=== PATIENT | female | born 1990 | race Two or more races ===

== ENCOUNTER 2025-03-02 21:02 | Emergency (ER) | payer MEDICAID, SELFPAY ==
[2025-03-02 21:03] VITALS: BMI 24.1
--- NOTE | 2025-03-02 21:09 | EDNOTE_ITS ---
ED Wound/Laceration-RME/HPI General Chief Complaint: Wound/Laceration Stated Complaint: HEAD INJURY, LAC TO HEAD Time Seen by Provider: 03/02/25 21:32 Arrival date/time: 03/02/25 21:02 RME / HPI RME / HPI narrative: This section includes all my notes and documentations, including HPI, PE, and ED course. Anastacio Pillai MD HPI: 34yo female with no significant past medical history presents to the ED for a chief complaint of a head injury just prior to arrival. Patient states she was working out at a local gym at 1930 and was bending over,. Then hit in the back of her head, a metal piece of equipment fell on her head. Denies any loss of consciousness. Patient states since then, she's developed a headache, dizziness, and nausea, so she came in for evaluation. Patient denies any other injuries. No other complaints reported. ROS: All negative except as documented in HPI. Physical Exam: General:? Alert and oriented.? No acute distress.?? Eyes:? Conjunctivae and lids clear.? EOMI.? PERRL. ENT:? No nasal congestion.? Pharynx normal.? Tympanic membrane normal bilaterally.??? Neck:? Supple.? No tenderness. Heart:? RRR.? Lungs:? No respiratory distress.? Good air movement.? No rhonchi, wheezing, rales.?? Chest:? No tenderness. Abdomen:? Soft and nontender.? Back:? No tenderness.?? Skin:? Warm and dry.??In the left parietal scalp, there is a 2.25 cm full-scalp thickness laceration gaping with active bleeding. Neuro:? Alert and oriented X 3.? Cranial Nerves II-XII grossly intact.? No peripheral motor deficits. Musculoskeletal:? All major joints and bones are not tender with no limited ROM.? I reviewed all diagnostic test results. My review of the CT head report is unremarkable. At this point, diagnoses include scalp laceration and head injury. See procedure note. Treatment here included wound care, Tylenol, Bacitracin, tDap, Ibuprofen, and Zofran. Provided wound care instructions. Based on my best medical judgment, made decision no further evaluation or treatment indicated at this time. Patient understands and agrees to the discharge instructions customized and printed, see below. Discharge Instructions from Dr. Pillai printed for you: -- Fortunately, there is no brain injury. -- Your scalp laceration was repaired with 6 lauren. -- Keep the current dressing intact for 24 hours. -- After 24 hours, change the dressing once daily. -- First remove the dressing gently. If it does not come off easily, run water through it until it comes off easily. -- Then gently wash with soap and water. -- After completely drying, apply antibiotic ointment and new dressing. -- See your doctor or return here in 10 days to remove your 7 lauren. -- Seek immediate medical care with fever, spreading redness from the wound, or with any concerns. Anastacio Pillai MD Related Data Allergies Allergy/AdvReac Type Severity Reaction Status Date / Time No Known Allergies Allergy Verified 03/02/25 21:06 Review of Systems Review of Systems Systems Reviewed: All systems reviewed, normal except as documented Past Medical History Past Medical History NEUROLOGIC: Negative Neurological Disorders CARDIAC: Negative Cardiac Disorders or Congestive Heart Failure RESPIRATORY: Negative Chronic Obstructive Pulmonary Disease (COPD) GASTROINTESTINAL: Negative Gastrointestinal Disorders GENITOURINARY: Negative Genitourinary Disorders or Renal Disease REPRODUCTIVE: Negative Breast Cancer MUSCULOSKELETAL: Negative Musculoskeletal Disorders ENDOCRINE: Negative Endocrine Disorders, Diabetes Mellitus Type 1 or Diabetes Mellitus Type 2 HEMATOLOGIC: Negative Blood Disorders OTHER HISTORY: Positive Hospitalization; Negative Autoimmune Disease, Down Syndrome, Developmental Delay, Falls, Blood Transfusions, Blood Transfusion Reaction, Anesthesia Reactions, Organ Transplant, Chemotherapy, Radiation Therapy, Hyperbaric Therapy or Breast Cancer Family History FAMILY HISTORY: Positive Family Cancer; Negative Family Psychiatric Problems, Family Respiratory Disorders, Family Cardiac Disorders, Family Gastrointestinal Problems, Family Surgery or Family Anesthesia Reaction Surgical History SURGICAL: Negative Section or Organ Transplant Social History SMOKING STATUS: Never smoker ED Exam Narrative Physical exam: As noted in HPI. Course Quality Measures none Orders Category Date Time Status Wound Care [Wound Care] NOW Care 03/02/25 21:[address] head/brain wo con Stat Exams 03/02/25 21:15 Completed Acetaminophen Tab [Tylenol Tab] Med 03/02/25 21:15 Discontinued 650 mg PO X1 ONE Bacitracin Oint pkt Med 03/02/25 21:15 Discontinued 1 gm TOP X1 ONE Ibuprofen Tab [Motrin Tab] Med 03/02/25 21:15 Discontinued 600 mg PO X1 ONE Ondansetron Odt [Zofran Odt] Med 03/02/25 21:15 Discontinued 4 mg PO X1 ONE TET,DIP/PERT AC (Adult)-Tdap [Boostrix Adult (Tdap) Med 03/02/25 21:15 Discontinued Vacc] 0.5 ml IMI .ONCE ONE Vital Signs Vital signs: Vital Signs Temperature 98.7 F 03/02/25 21:14 Pulse Rate 62 03/02/25 21:14 Respiratory Rate 18 03/02/25 21:14 Blood Pressure 130/83 03/02/25 21:14 Pulse Oximetry (%) 99 03/02/25 21:14 Oxygen Delivery Method Room Air 03/02/25 21:14 Procedures -ED Laceration Laceration 1: Site: scalp (parietal) Side (If applicable): left Size (cm): 2.5 Description: linear Depth: simple, single layer Local Anesthetic: lidocaine 1% Amount of anesthesia used (mL): 6 Pre-repair: irrigated extensively Skin layer closed with: other (6 lauren) Wound / Laceration MDM Narrative MDM Narrative:: 34yo female with no significant past medical history presents to the ED for a chief complaint of a head injury. Patient states she was working out at the gym at 1930 and was bending over, reporting she hit the back of her head on a metal piece of equipment. Denies any loss of consciousness. Patient states since then, she's developed a headache, dizziness, and nausea. Patient denies any other injuries. No other complaints reported. Patient data External records reviewed:: [facility] previous records (Per chart review, patient was seen here on 10/16/19 for abdominal pain.) Clinical information provided by:: patient Social determinants that could affect healthcare access:: none Patient has the following chronic illnesses:: none How is presenting disease/condition affected by chronic disease/condition?: no c hronic disease Evaluation data The following diagnostics were reviewed and interpreted by me:: radiology exam(s) Lab and/or radiology exams considered but not ordered:: none Interpretation Summary: I reviewed all diagnostic test results. My review of the CT head report is unremarkable. Medications / Prescriptions Medications or Prescriptions considered but not ordered:: none Medication administrations:: Medication Administration History Discontinued Medications Acetaminophen (Acetaminophen 325 Mg Tablet) 650 mg PO X1 ONE Stop: 03/02/25 21:16 Last Admin: 03/02/25 21:42 Dose: 650 mg Documented By: EF Bacitracin (Bacitracin Oint 1 Gm Packet) 1 gm TOP X1 ONE Stop: 03/02/25 21:16 Last Admin: 03/02/25 21:44 Dose: 1 gm Documented By: SHAHAB Comments: barcode not scanning applied to patients laceration Diphtheria/Tetanus/Acell Pertussis (Diphth,Pertuss(Acell),Tet Vac 0.5 Ml Syr- Adult) 0.5 ml IMi .ONCE ONE Stop: 03/02/25 21:16 Last Admin: 03/02/25 21:43 Dose: 0.5 ml Documented By: SHAHAB Ibuprofen (Ibuprofen Tab 600 Mg Tablet) 600 mg PO X1 ONE Stop: 03/02/25 21:16 Last Admin: 03/02/25 21:43 Dose: 600 mg Documented By: SHAHAB Ondansetron HCl (Ondansetron Odt 4 Mg Tabrap) 4 mg PO X1 ONE; Protocol Stop: 03/02/25 21:16 Last Admin: 03/02/25 21:42 Dose: 4 mg Documented By: SHAHAB Tylenol, Bacitracin, tDap, Ibuprofen, Zofran Consultations Consultation(s) initiated? (list below): No Diagnosis Wound Differential Diagnosis: laceration and other (Concussion, intracranial bleed, skull fracture) Most likely diagnosis given after review of the tests above:: Scalp laceration, Head injury Admission Indicated Admission indicated?: not indicated Explain why admission is indicated or not indicated:: With no severe injuries, there was no indication for admission. Admission Request Was there a request for admission?: No Disposition Plan Disposition Plan: Discharge Discharge Attestation Discharge Attestation: The patient and all family members were given an opportunity to ask questions and understood the discharge instructions. Discharge instructions specifically effects, indications for sooner follow up or return to the emergency department, and the expected course of current diagnosis. Patient condition: Stable Discharge Plan Plan Patient Disposition: HOME (Self Care) Problem List Clinical Impression: Scalp laceration, Head injury Patient/Caregiver Discharge Instructions Discharge Activity: activity as tolerated Education Materials: ED Head Injury (Adult), ED Laceration Scalp Sutures or ... Additional Instructions: Discharge Instructions from Dr. Pillai printed for you: -- Fortunately, there is no brain injury. -- Your scalp laceration was repaired with 6 lauren. -- Keep the current dressing intact for 24 hours. -- After 24 hours, change the dressing once daily. -- First remove the dressing gently.? If it does not come off easily, run water through it until it comes off easily. -- Then gently wash with soap and water. -- After completely drying, apply antibiotic ointment and new dressing. -- See your doctor or return here in 10 days to remove your 7 lauren. -- Seek immediate medical care with fever, spreading redness from the wound, or with any concerns. Print Language: Bahamian Stand Alone Forms: [employer] Award Info., Patient Portal Info Letter
[2025-03-02 21:14] VITALS: BP 130/83; PULSE 62; RESP 18; TEMP 37.1; O2SAT 99
--- NOTE | 2025-03-02 21:15 | XR_ITS ---
Examination: CT brain head without contrast. 2-D sagittal coronal reconstructions Date and time of exam:March 02, 2025 2210 hours INDICATIONS: Injury to the head today, head pain CTDI: vol (mGy):49 DLP: (mGycm):913 Technique: Multiple CT axial sections of the brain have been obtained, 5 mm slice thickness. Contrast has not been administered. 2-D sagittal, coronal reconstructions have been obtained Low dose protocols were performed. One or more of the following dose reduction techniques were used; automated exposure control, adjustment of the mA and/or KV according to patient size, use of iterative reconstruction technique. Findings: No significant ventricular enlargement. Intra-axial or extra-axial hemorrhage density is not seen. No mass effect or midline shift Basal cisterns are not remarkable. Fourth ventricle is midline. Cranial vault intact. Impression: Negative for acute hemorrhage, mass effect or midline shift
[2025-03-02] MEDS: ACETAMINOPHEN 325 MG TABLET 650 MG PO (21:42)
[2025-03-02] MEDS: ONDANSETRON ODT 4 MG TABRAP PO (21:42)
[2025-03-02] MEDS: IBUPROFEN TAB 600 MG TABLET PO (21:43)
[2025-03-02] MEDS: DIPHTH,PERTUSS(ACELL),TET VAC 0.5 ML SYR- ADULT IMi (21:43)
[2025-03-02] MEDS: BACITRACIN OINT 1 GM PACKET TOP (21:44)
[2025-03-02 23:04] VITALS: RESP 16
== END 2025-03-02 23:04 | disposition home or self-care (01) ==
LOC: SERX 22:55
PROVIDERS: Emergency Provider Emergency Medicine
DX: S01.01XA Laceration without foreign body of scalp, initial encounter (principal); W22.8XXA Striking against or struck by other objects, initial encounter; Z23 Encounter for immunization
CPT/HCPCS: 12001; 70450; 90471; 90715; 99284; Q0162; A9270

== ENCOUNTER 2025-06-05 22:52 | Emergency (ER) | payer MEDICAID, SELFPAY ==
[2025-06-05 22:52] VITALS: BMI 24.1
--- NOTE | 2025-06-05 23:42 | PC.NURSE ---
called for pt from lobby/outside, no [email or web address]@ [phone]
--- NOTE | 2025-06-06 00:17 | PC.NURSE ---
CALLED FOR PT FROM LOBBY/OUTSIDE, NO [email or web address] @[phone]
--- NOTE | 2025-06-06 00:28 | PD.EDADDENDU ---
Emergency Room Addendum Addendum Narrative: When I looked for the patient to start my evaluation, I was told the patient eloped. Anastacio Pillai MD
--- NOTE | 2025-06-06 00:36 | PC.NURSE ---
CALLED FOR PT FROM LOBBY/OUTSIDE, NO [email or web address]@ [phone]
== END 2025-06-06 02:34 | disposition left against medical advice (07) ==
PROVIDERS: Emergency Provider Emergency Medicine
DX: Z53.21 Procedure and treatment not carried out due to patient leaving prior to being seen by health care provider (principal)
CPT/HCPCS: 99281